=== PATIENT | male | born 1990 | race Caucasian/White ===

== ENCOUNTER 2020-12-16 09:29 | Emergency (ER) | payer OTHER ==
[~2020-12-16] VITALS: Ht 188 cm; Wt 97.5 kg
[2020-12-16] MEDS ORDERED: POLYTRIM EYE DR10 M1 LEFTEYE (10:50)
== END 2020-12-16 10:56 | disposition home or self-care (01) ==
LOC: ER 09:29
DX: H10.9 Unspecified conjunctivitis (principal)
CPT/HCPCS: 99283; A9270